=== PATIENT | male | born 1970 | race African-American/Black ===

== ENCOUNTER 2021-12-25 13:36 | Emergency (ER) | payer MEDICAID ==
[~2021-12-25] VITALS: Ht 182.9 cm; Wt 84.0 kg
[2021-12-25 13:39] VITALS: BP 123/84
== END 2021-12-25 14:11 | disposition home or self-care (01) ==
LOC: ER 13:45
DX: L72.9 Follicular cyst of the skin and subcutaneous tissue, unspecified (principal); I10 Essential (primary) hypertension; E78.00 Pure hypercholesterolemia, unspecified
CPT/HCPCS: 99281